=== PATIENT | female | born 1950 | race Caucasian/White ===

== ENCOUNTER 2017-03-29 01:02 | Emergency (ER) | payer MEDICARE, OTHER ==
[2017-03-29 01:04] VITALS: BP 135/84; PULSE 83; RESP 16; TEMP 98.2; O2SAT 98
--- NOTE | 2017-03-29 02:04 | PD ---
HPI Chief Complaint: GI Complaint Time Seen by Provider: 02:04 Travel History International Travel<30 days: No Contact w/Intl Traveler<30days: No Traveled to known affect area: No History of Present Illness HPI 66-year-old female came to the emergency room with history of nausea, vomiting and diarrhea for past 24 hours. Patient says she had 4 episodes of vomiting but there were large in quantity. She had 2 episodes of loose stool. No blood in vomit or stool. She started experiencing some abdominal discomfort. She is here with her . Last vomit was an hour ago. Vital signs otherwise stable. No known sick contacts. [facility] Past Medical History Narrative Medical List of her past medical, surgical, social and family history is reviewed from the nursing note. Diminished Hearing: No Hypertension: Yes ?: Not Past Surgical History Cholecystectomy: Yes Gynecologic Surgery: Yes (CERVICAL DYSPLASIA) Tonsillectomy: Yes Social History Alcohol Use: No Tobacco Use: No Substance Use: No Allergies-Medications (Allergen,Severity, Reaction): Coded Allergies: codeine (Verified Allergy, Severe, 03/29/17) meperidine (Verified Allergy, Severe, Dizziness, 03/29/17) Comments List of her allergies reviewed from the nursing note. Reported Meds & Prescriptions Reported Meds & Active Scripts Active Zofran Odt (Ondansetron Odt) 4 Mg Tab 4 Mg SL Q6HR PRN Narrative Medication Awaiting for the nurse to do the medical reconciliation. Review of Systems Except as stated in HPI: all other systems reviewed are Neg Gastrointestinal: Positive: Nausea, Vomiting, Diarrhea, Abdominal Pain Physical Exam Narrative GENERAL: Awake, alert, anxious, moderate distress SKIN: Focused skin assessment warm/dry. HEAD: Atraumatic. Normocephalic. EYES: Pupils equal and round. No scleral icterus. No injection or drainage. ENT: No nasal bleeding or discharge. Dry mucous membrane and coated tongue. NECK: Trachea midline. No JVD. CARDIOVASCULAR: Regular rate and rhythm. No murmur appreciated. RESPIRATORY: No accessory muscle use. Clear to auscultation. Breath sounds equal bilaterally. GASTROINTESTINAL: Abdomen soft, non-tender, nondistended. Hyperactive bowel sounds. Hepatic and splenic margins not palpable. MUSCULOSKELETAL: No obvious deformities. No clubbing. No cyanosis. No edema. NEUROLOGICAL: Awake and alert. No obvious cranial nerve deficits. Motor grossly within normal limits. Normal speech. PSYCHIATRIC: Appropriate mood and affect; insight and judgment normal. Data Data Last Documented VS Vital Signs Date Time Temp Pulse Resp B/P (MAP) Pulse Ox O2 Delivery O2 Flow Rate FiO2 03/29/17 02:29 16 100 Room Air 03/29/17 01:04 98.2 83 Orders Orders Complete Blood Count With Diff (03/29/17 02:19) Comprehensive Metabolic Panel (03/29/17 02:19) Lipase (03/29/17 02:19) Ct Abd/Pel W/O Iv Contrast (03/29/17 02:19) Iv Access Insert/Monitor (03/29/17 02:19) Ecg Monitoring (03/29/17 02:19) Oximetry (03/29/17 02:19) Ondansetron Inj (Zofran Inj) (03/29/17 02:30) Sodium Chlor 0.9% 1000 Ml Inj (Ns 1000 M (03/29/17 02:19) Sodium Chloride 0.9% Flush (Ns Flush) (03/29/17 02:30) Ed Discharge Order (03/29/17 03:26) Labs Laboratory Tests Test 03/29/17 02:25 White Blood Count 12.0 TH/MM3 Red Blood Count 4.30 MIL/MM3 Hemoglobin 13.7 GM/DL Hematocrit 38.5 % Mean Corpuscular Volume 89.5 FL Mean Corpuscular Hemoglobin 31.8 PG Mean Corpuscular Hemoglobin Concent 35.5 % Red Cell Distribution Width 13.4 % Platelet Count 262 TH/MM3 Mean Platelet Volume 9.2 FL CBC Comment AUTO DIFF Differential Total Cells Counted 100 Neutrophils % (Manual) 86 % Band Neutrophils % 8 % Monocytes % 3 % Eosinophils % 1 % Basophils % 2 % Neutrophils # (Manual) 11.3 TH/MM3 Differential Comment FINAL DIFF MANUAL Platelet Estimate NORMAL Platelet Morphology Comment NORMAL Red Cell Morphology Comment NORMAL Blood Urea Nitrogen 27 MG/DL Creatinine 0.86 MG/DL Random Glucose 146 MG/DL Total Protein 7.9 GM/DL Albumin 4.0 GM/DL Calcium Level 8.7 MG/DL Alkaline Phosphatase 114 U/L Aspartate Amino Transf (AST/SGOT) 31 U/L Alanine Aminotransferase (ALT/SGPT) 32 U/L Total Bilirubin 0.6 MG/DL Sodium Level 138 MEQ/L Potassium Level 4.6 MEQ/L Chloride Level 105 MEQ/L Carbon Dioxide Level 25.0 MEQ/L Anion Gap 8 MEQ/L Estimat Glomerular Filtration Rate 66 ML/MIN Lipase 152 U/L MDM Medical Decision Making Medical Screen Exam Complete: Yes Emergency Medical Condition: Yes Medical Record Reviewed: Yes Differential Diagnosis Acute gastroenteritis, partial small bowel obstruction, dehydration Narrative Course 3:23 AM blood test results are back. She has slight leukocytosis. CAT scan was ordered which is done. Awaiting for the report. Patient was given 1 L of IV fluid bolus and IV Zofran. Procedures EKG Prior to Arrival: No Diagnosis Primary Impression: Acute gastroenteritis Additional Impression: Dehydration Referrals: Primary Care Physician Additional Instructions: Drinking fluids to keep herself hydrated. Take the medication as per the prescription direction. Return to ER if condition worsens or any other new concerns. Otherwise follow-up with your primary care. Med/Other Pt SpecificInfo: Prescription(s) given Scripts Ondansetron Odt (Zofran Odt) 4 Mg Tab 4 MG SL Q6HR Y for Nausea/Vomiting, #10 TAB 0 Refills Prov: Ana Rojas MD 03/29/17 Disposition: 01 DISCHARGE HOME Condition: Stable Ana Rojas MD Mar 29, 2017 02:04
[2017-03-29] MEDS ORDERED: SODIUM CHLOR 0.9% 1000 ML INJ 1,000 ML IV SCH (02:19)
[2017-03-29 02:29] VITALS: RESP 16; O2SAT 100
[2017-03-29] MEDS ORDERED: ONDANSETRON HCL 4 MG/2 ML VIAL IVP ONE (02:30)
[2017-03-29] MEDS ORDERED: SODIUM CHLORIDE 0.9% FLUSH 10 ML FLUSH IV FLUSH PRN (02:30)
[2017-03-29 02:44] LABS: HEMATOCRIT 38.5 % (35.0-46.0); HEMOGLOBIN 13.7 GM/DL (11.6-15.3); MEAN CELL VOLUME 89.5 FL (80.0-100.0); MEAN CORPUSCULAR HEMOGLOBIN 31.8 PG (27.0-34.0); MEAN CORPUSCULAR HGB CONC 35.5 % (32.0-36.0); MEAN PLATELET VOLUME 9.2 FL (7.0-11.0); PLATELET COUNT 262 TH/MM3 (150-450); RED CELL DISTRIBUTION WIDTH 13.4 % (11.6-17.2)
[2017-03-29 03:00] LABS: ALT (GPT) 32 U/L (10-53); AST (GOT) 31 U/L (15-37); BLOOD UREA NITROGEN 27 MG/DL (7-18); CALCIUM 8.7 MG/DL (8.5-10.1); CHLORIDE 105 MEQ/L (98-107); CREATININE 0.86 MG/DL (0.50-1.00); GLOMERULAR FILTRATION RATE 66 ML/MIN (>89); GLUCOSE,RANDOM 146 MG/DL (74-106); SODIUM (NA) 138 MEQ/L (136-145)
[2017-03-29 03:01] LABS: ALKALINE PHOSPHATASE 114 U/L (45-117); TOTAL BILIRUBIN ADULT 0.6 MG/DL (0.2-1.0); TOTAL PROTEIN 7.9 GM/DL (6.4-8.2)
--- NOTE | 2017-03-29 03:21 | RADRPT ---
EXAM DATE/TIME: 03/29/2017 03:04 [facility] COMPARISON: No previous studies available for comparison. EXTERNAL COMPARISON : [facility], March 24, 2017 INDICATIONS : Abdomen pain; vomiting. ORAL CONTRAST: No oral contrast ingested. RADIATION DOSE: 6.91 CTDIvol (mGy) MEDICAL HISTORY : Hypertension. SURGICAL HISTORY : Cholecystectomy. ENCOUNTER: Initial ACUITY: 1 day PAIN SCALE: 5/10 LOCATION: Bilateral abdomen TECHNIQUE: Volumetric scanning of the abdomen and pelvis was performed. Using automated exposure control and ad justment of the mA and/or kV according to patient size, radiation dose was kept as low as reasonably achievable to obtain optimal diagnostic quality images. DICOM format image data is available electro nically for review and comparison. FINDINGS: Lung bases clear. No acute findings in the liver, spleen, adrenals, kidneys or pancreas. Previous cho lecystectomy. No free fluid. No bowel obstruction. No adenopathy. Mild scoliosis. CONCLUSION: 1. No acute findings on abdomen and pelvic CT. Srikanth Beltran MD on March 29, 2017 at 3:15 Board Certified Radiologist. This report was verified electronically.
[2017-03-29] MEDS ORDERED: ZOFR4TAB3 SL (03:25)
[2017-03-29 04:14] LABS: BANDS 8 % (0-6); BASOPHILS 2 % (0-2); MONOCYTES 3 % (0-8); NEUTROPHIL # MANUAL DIFF 11.3 TH/MM3 (1.8-7.7); POLYS (SEG NEUTROPHILS) 86 % (16-70)
== END 2017-03-29 03:45 | disposition home or self-care (01) ==
LOC: NEPE 01:02
DX: K52.9 Noninfective gastroenteritis and colitis, unspecified (principal); E86.0 Dehydration; D72.829 Elevated white blood cell count, unspecified; I10 Essential (primary) hypertension; Z88.5 Allergy status to narcotic agent; Z88.8 Allergy status to other drugs, medicaments and biological substances
CPT/HCPCS: 74176; 80053; 83690; 85007; 85027; 96361; 96374; 99284; J2405; J7030